=== PATIENT | female | born 1990 | race African-American/Black ===

== ENCOUNTER 2016-10-20 14:59 | Emergency (ER) | payer SELFPAY ==
[~2016-10-20] VITALS: Ht 157.5 cm; Wt 117.9 kg
[~2016-10-20 14:59] MED LIST: ACYC800T PO; HYDR12.58 PO; LIDO5JEL8 MM; VALA500T PO; VALA500T5 PO
[2016-10-20] MEDS ORDERED: ACETAMINOPHEN 325 MG TABLET. PO ONE (15:45)
--- NOTE | 2016-10-20 15:46 | PHYS DOC ---
Past Medical History Past Medical History: CHF, Hypertension, Other Additional Past Medical Histor: TETRALOGY OF FALLOT, obesity,venereal herpes Past Surgical History: Tonsillectomy, Other Additional Past Surgical Histo: PULMONARY VALVE REPLACEMENT, SHUNT PLACEMENT IN BACK, EYE SURGERY Past Surgical History 2 heart surgeries Alcohol Use: None Drug Use: None Adult General Chief Complaint Chief Complaint: SHORTNESS OF BREATH HPI HPI Patient is a 25 year old female presents to emergency department stating for the last 2-3 days she has had a cough, congestion and felt like SOA. She states she was at work when she developed SOA. She states she has taken over the counter cold and flu medication without relief. Patient states she has had chills, denies fever, nausea or vomiting. Review of Systems Review of Systems Constitutional: Denies fever C/o chills [] Eyes: Denies change in visual acuity, redness, or eye pain [] HENT: Denies nasal congestion C/o sore throat [] Respiratory: cough and shortness of breath [] Cardiovascular: No additional information not addressed in HPI [] GI: Denies abdominal pain, nausea, vomiting, bloody stools or diarrhea [] : Denies dysuria or hematuria [] Musculoskeletal: Denies back pain or joint pain [] Integument: Denies rash or skin lesions [] Neurologic: Denies headache, focal weakness or sensory changes [] Current Medications Current Medications Current Medications Medications (Trade) Dose Ordered Sig/Chely Start Time Stop Time Status Last Admin Dose Admin Acetaminophen (Tylenol) 650 mg 1X ONCE 10/20/16 15:45 10/20/16 15:48 DC Albuterol Sulfate (Ventolin Neb Soln) 2.5 mg 1X ONCE 10/20/16 16:45 10/20/16 16:46 DC Allergies Allergies Allergies Coded Allergies Type Severity Reaction Last Updated Verified aspirin Allergy Intermediate Palpitations 12/25/13 Yes Physical Exam Physical Exam Constitutional: Well developed, well nourished, no acute distress, non-toxic appearance. [] HENT: Normocephalic, atraumatic, bilateral external ears normal, oropharynx moist, no oral exudates, nose normal. Bilateral TM normal, throat with post nasal drip noted, erythema noted, no exudate. Eyes: PERRLA, EOMI, conjunctiva normal, no discharge. [] Neck: Normal range of motion, no tenderness, supple, no stridor. [] Cardiovascular:Heart rate regular rhythm, no murmur [] Lungs & Thorax: Bilateral breath sounds clear to auscultation [] Skin: Warm, dry, no erythema, no rash. [] Back: No tenderness Extremities: No tenderness, no cyanosis, no clubbing, ROM intact, no edema. [] Neurologic: Alert and oriented X 3, normal motor function, normal sensory function, no focal deficits noted. [] Psychologic: Affect normal, judgement normal, mood normal. [] Current Patient Data Vital Signs Vital Signs Date Time Temp Pulse Resp B/P Pulse Ox O2 Delivery O2 Flow Rate FiO2 10/20/16 15:52 97.6 80 28 100 Room Air 97.6 Lab Values Laboratory Tests Test 10/20/16 15:35 10/20/16 15:45 10/20/16 15:53 Influenza Type A Antigen Negative (NEGATIVE) Influenza Type B Antigen Negative (NEGATIVE) Urine Color Yellow Urine Clarity Clear Urine pH 5.5 Urine Specific [place] 1.020 Urine Protein Negativemg/dL (NEG-TRACE) Urine Glucose (UA) Negativemg/dL (NEG) Urine Ketones (Stick) Negativemg/dL (NEG) Urine Blood Trace (NEG) Urine Nitrite Negative (NEG) Urine Bilirubin Negative (NEG) Urine Urobilinogen Dipstick 0.2mg/dL (0.2 mg/dL) Urine Leukocyte Esterase Negative (NEG) Urine RBC Rare/HPF (0-2) Urine WBC 1-4/HPF (0-4) Urine Squamous Epithelial Cells Mod/LPF Urine Bacteria Few/HPF (0-FEW) Urine Mucus Slight/LPF POC Urine HCG, Qualitative Hcg negative (Negative) EKG EKG EKG completed at 1540 with SR noted HR [address] Gillis[] Radiology/Procedures Radiology/Procedures [] Course & Med Decision Making Course & Med Decision Making Pertinent Labs and Imaging studies reviewed. (See chart for details) Patients CXR was negative, influenza was negative. Strep throat was negative. Patient is upset because she has a crying child in the next room next to her. Patient is also upset as she had Tylenol ordered and it has not received the medication. Patient had a respiratory treatment ordered in which patient's refused she's also refuses to have a d-dimer obtained to rule out blood clot to the lung she has had shortness of air has had also valve replacement as well as trilogy of flow. Patient has requested leave AGAINST MEDICAL ADVICE. Patient was provided with risks and benefits. Patient is very upset cursing at staff and continuing to state that we did nothing for her. Patient was also able to talk in full sentences containing 10 words. Dragon Disclaimer Dragon Disclaimer This electronic medical record was generated, in whole or in part, using a voice recognition dictation system. Departure Departure Impression: Primary Impression: Left against medical advice Additional Impression: Dyspnea Disposition: 07 AGAINST MEDICAL ADVICE Condition: STABLE Referrals: NO PCP (PCP) Problem Qualifiers TYLOR BEAULIEU NP Oct 20, 2016 15:46
[2016-10-20 15:52] VITALS: BP 139/81
--- NOTE | 2016-10-20 15:55 | EKG ---
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
[2016-10-20 16:02] LABS: OBC FLU VALID
[2016-10-20 16:17] LABS: BILIRUBIN,URINE NEGATIVE (NEG); GLUCOSE,URINE NEGATIVE (NEG); NITRITE,URINE NEGATIVE (NEG); PH,URINE 5.5; PROTEIN,URINE NEGATIVE (NEG-TRACE); UROBILINOGEN,URINE 0.2 mg/dL (0.2 mg/dL)
--- NOTE | 2016-10-20 16:27 | RAD ---
Chest, 2 views, 10/20/2016: History: Cough, shortness of breath, previous cardiac surgery Comparison is made to a study from 02/19/2014. There has been a previous median sternotomy. Epicardial leads overlie the anterior aspect of the heart. The heart is at the upper limits of normal in size. The pulmonary vascularity is normal. No pulmonary infiltrates are seen. There is no evidence of pleural fluid. There are postsurgical rib deformities are present on the right. IMPRESSION: No acute cardiopulmonary abnormality is detected.
[2016-10-20 16:33] LABS: BACTERIA,URINE FEW /HPF (0-FEW); RBC,URINE RARE /HPF (0-2); SQUAMOUS EPITHELIAL CELL,UR MOD /LPF
[2016-10-20] MEDS ORDERED: ALBUTEROL SULFATE 2.5 MG/3 ML NEBU. NEB ONE (16:45)
[2016-10-21 08:26] LABS: NEGATIVE OBC STREP NEG; POSITIVE OBC STREP POS
== END 2016-10-20 17:03 | disposition left against medical advice (07) ==
LOC: ER 14:59
DX: R06.00 Dyspnea, unspecified (principal); R05 Cough; R09.82 Postnasal drip; R09.81 Nasal congestion; I11.0 Hypertensive heart disease with heart failure; I50.9 Heart failure, unspecified; E66.9 Obesity, unspecified; Z68.42 Body mass index [BMI] 45.0-49.9, adult; Z88.6 Allergy status to analgesic agent
CPT/HCPCS: 71020; 81001; 81025; 87070; 87804; 87880; 93005; 99285-25

== ENCOUNTER 2016-12-08 22:19 | Emergency (ER) | payer SELFPAY ==
[~2016-12-08] VITALS: Ht 157.5 cm; Wt 122.5 kg
[2016-12-08 22:35] VITALS: BP 164/95
[2016-12-08] MEDS ORDERED: ACYC200C PO (22:45)
--- NOTE | 2016-12-08 22:45 | PHYS DOC ---
Past Medical History Past Medical History: CAD Additional Past Medical Histor: TETRALOGY OF FALLOT, obesity,venereal herpes Past Surgical History: Coronary Bypass Surgery Additional Past Surgical Histo: PULMONARY VALVE REPLACEMENT, SHUNT PLACEMENT IN BACK, EYE SURGERY Alcohol Use: None Drug Use: None Adult General Chief Complaint Chief Complaint: SEXUALLY TRANSMITTED DISEASE [facility] HPI Patient is a 26 year old male presents emergency partner stating that she is having a outbreak of herpes. She states that she does not have any acyclovir at home in which she can take. She denies any vaginal discharge and denies any abdominal pain or discomfort. She states that she has just finished her menstrual cycle. She denies any fever, chills or nausea vomiting Review of Systems Review of Systems Constitutional: Denies fever or chills [] Eyes: Denies change in visual acuity, redness, or eye pain [] HENT: Denies nasal congestion or sore throat [] Respiratory: Denies cough or shortness of breath [] Cardiovascular: No additional information not addressed in HPI [] GI: Denies abdominal pain, nausea, vomiting, bloody stools or diarrhea [] : Denies dysuria or hematuria [] Musculoskeletal: Denies back pain or joint pain [] Integument: Denies rash or skin lesions. C/o lesions in vaginal area Neurologic: Denies headache, focal weakness or sensory changes [] Allergies Allergies Allergies Coded Allergies Type Severity Reaction Last Updated Verified aspirin Allergy Intermediate Palpitations 12/25/13 Yes Physical Exam Physical Exam Constitutional: Well developed, well nourished, no acute distress, non-toxic appearance. [] HENT: Normocephalic, atraumatic, bilateral external ears normal, oropharynx moist, no oral exudates, nose normal. [] Eyes: PERRLA, EOMI, conjunctiva normal, no discharge. [] Neck: Normal range of motion, no tenderness, supple, no stridor. [] Cardiovascular:Heart rate regular rhythm, no murmur [] Lungs & Thorax: Bilateral breath sounds clear to auscultation [] Skin: Warm, dry, no erythema, no rash. Patient was noted to have pustular type lesions in the vaginal area. Back: No tenderness Extremities: No tenderness, no cyanosis, no clubbing, ROM intact, no edema. [] Neurologic: Alert and oriented X 3, normal motor function, normal sensory function, no focal deficits noted. [] Psychologic: Affect normal, judgement normal, mood normal. [] EKG EKG [] Radiology/Procedures Radiology/Procedures [] Course & Med Decision Making Course & Med Decision Making Pertinent Labs and Imaging studies reviewed. (See chart for details) She was noted to have some pressure type lesions in the vaginal area. She'll be placed on acyclovir with recommendations to avoid any sexual intercourse during the outbreak. Patient will be discharged home in stable condition signs symptoms to return back to emergency department been provided. Patient agrees with discharge instructions treatment regimens and follow-up recommendations. [] Dragon Disclaimer Dragon Disclaimer This electronic medical record was generated, in whole or in part, using a voice recognition dictation system. Departure Departure Impression: Primary Impression: Genital herpes Disposition: HOME, SELF-CARE Condition: STABLE Referrals: NO PCP (PCP) Patient Instructions: Genital Herpes Additional Instructions: Activity as tolerated. Medications as prescribed. Avoid any sexual intercourse while you're having the outbreak. Follow-up with your primary care physician for further evaluation. Return to emergency prior signs symptoms of become worse. Scripts Acyclovir 200 Mg Capsule1 Cap PO 5XDAY #50 CAP Prov:TYLOR BEAULIUE [employer]ING P[employer]HER 12/08/16 TYLOR BEAULIEU [employer]ING PUSHER Dec 08, 2016 22:45
== END 2016-12-08 22:49 | disposition home or self-care (01) ==
LOC: ER 22:19
DX: A60.00 Herpesviral infection of urogenital system, unspecified (principal); I25.10 Atherosclerotic heart disease of native coronary artery without angina pectoris; E66.9 Obesity, unspecified; Z95.2 Presence of prosthetic heart valve; Z95.1 Presence of aortocoronary bypass graft; Z88.6 Allergy status to analgesic agent; Z68.42 Body mass index [BMI] 45.0-49.9, adult
CPT/HCPCS: 81025; 99283

== ENCOUNTER 2017-04-09 23:08 | Emergency (ER) | payer SELFPAY ==
[~2017-04-09] VITALS: Ht 157.5 cm; Wt 104.3 kg
[~2017-04-09 23:08] MED LIST changes: +ACYC200C PO
[2017-04-09 23:36] LABS: BILIRUBIN,URINE NEGATIVE (NEG); GLUCOSE,URINE NEGATIVE (NEG); NITRITE,URINE NEGATIVE (NEG); PH,URINE 5.5; PROTEIN,URINE NEGATIVE (NEG-TRACE)
--- NOTE | 2017-04-09 23:42 | PHYS DOC ---
Past Medical History Past Medical History: CAD Additional Past Medical Histor: TETRALOGY OF FALLOT, obesity,venereal herpes Past Surgical History: Coronary Bypass Surgery Additional Past Surgical Histo: PULMONARY VALVE REPLACEMENT, SHUNT PLACEMENT IN BACK, EYE SURGERY Alcohol Use: Occasionally Drug Use: None Adult General Chief Complaint Chief Complaint: PAIN ON URINATION HPI HPI Patient is a 26 year old female who presents with complaint of dysuria. The patient states that she has been having symptoms over the past 3 days which have been worsening during that time. Patient states that she has had increased urinary frequency and has been producing small amounts of urine with each void. Patient states that she gets mild discomfort in her pelvis but states that this only happens during urination. Patient states that her last menstrual period was "in the middle of February." The patient states that she is 4-5 days late on her menstrual cycle. Patient states that it is possible she could be . Patient has not taken any medications to help with her symptoms. Patient has not had any associated fever, nausea, or vomiting. Review of Systems Review of Systems Constitutional: Denies fever or chills [] Eyes: Denies change in visual acuity, redness, or eye pain [] HENT: Denies nasal congestion or sore throat [] Respiratory: Denies cough or shortness of breath [] Cardiovascular: Denies chest pain or edema [] GI: Lower abdominal pain with voiding, denies nausea, vomiting, bloody stools or diarrhea [] : Dysuria, urinary frequency, denies vaginal bleeding [] Musculoskeletal: Denies back pain or joint pain [] Integument: Denies rash or skin lesions [] Neurologic: Denies headache, focal weakness or sensory changes [] Current Medications Current Medications Current Medications Medications (Trade) Dose Ordered Sig/Chely Start Time Stop Time Status Last Admin Dose Admin Azithromycin (Zithromax) 1,000 mg 1X ONCE 04/10/17 00:00 04/10/17 00:49 DC 04/10/17 00:35 1,000 MG Ceftriaxone Sodium (Rocephin Im) 250 mg 1X ONCE 04/10/17 00:00 04/10/17 00:49 DC 04/10/17 00:35 250 MG Allergies Allergies Allergies Coded Allergies Type Severity Reaction Last Updated Verified aspirin Allergy Intermediate Palpitations 12/25/13 Yes Physical Exam Physical Exam Constitutional: Alert, obese, afebrile, no acute distress. [] HENT: Normocephalic, atraumatic, bilateral external ears normal, oropharynx moist, no oral exudates, nose normal. [] Eyes: PERRLA, EOMI, conjunctiva normal, no discharge. [] Neck: Normal range of motion, no tenderness, supple, no stridor. [] Cardiovascular:Heart rate regular rhythm, no murmur [] Lungs & Thorax: Bilateral breath sounds clear to auscultation [] Abdomen: Bowel sounds normal, soft, no tenderness, no masses, no pulsatile masses. : Normal external exam, no vesicular lesions on labia, no blood in vaginal canal, cervix is closed [] Skin: Warm, dry, no erythema, no rash. [] Back: No tenderness, no CVA tenderness. [] Extremities: No tenderness, no cyanosis, no clubbing, ROM intact, no edema. [] Neurologic: Alert and oriented X 3, normal motor function, normal sensory function, no focal deficits noted. [] Current Patient Data Vital Signs Vital Signs Date Time Temp Pulse Resp B/P (MAP) Pulse Ox O2 Delivery O2 Flow Rate FiO2 04/09/17 23:34 98.1 82 18 116/85 (95) 100 Room Air 98.1 Lab Values Laboratory Tests Test 04/09/17 03:15 04/09/17 22:36 Urine Collection Type Unknown Urine Color Yellow Urine Clarity Cloudy Urine pH 5.5 Urine Specific [place] >=1.030 Urine Protein Negative mg/dL (NEG-TRACE) Urine Glucose (UA) Negative mg/dL (NEG) Urine Ketones (Stick) Trace mg/dL (NEG) Urine Blood Negative (NEG) Urine Nitrite Negative (NEG) Urine Bilirubin Negative (NEG) Urine Urobilinogen Dipstick 1.0 mg/dL (0.2 mg/dL) Urine Leukocyte Esterase Moderate (NEG) Urine RBC Occ /HPF (0-2) Urine WBC 11-20 /HPF (0-4) Urine Squamous Epithelial Cells Many /LPF Urine Bacteria Moderate /HPF (0-FEW) Urine Mucus Marked /LPF Urine Trichomonas Present POC Urine HCG, Qualitative Hcg positive (Negative) Microbiology 04/10/17 Wet Prep - Final, Complete EKG EKG Not performed [] Radiology/Procedures Radiology/Procedures Not performed [] Course & Med Decision Making Course & Med Decision Making Pertinent Labs and Imaging studies reviewed. (See chart for details) Patient's urine hCG was found to be positive. I spoke with the patient regarding this finding. She stated her last menstrual period was approximately 4 weeks ago and stated that she was 4 days late on her current menstrual period. Given that this was a brand-new finding of , I offered additional blood work including a confirmatory hCG test. The patient stated however that she did not want to have any blood drawn at this time and declined all blood testing. She stated that she would follow-up with an CATALYTIC CONVERTER OPERATOR to have this done. The patient's urinalysis showed evidence of urinary tract infection and also showed evidence of trichomonas. The patient's wet prep also shows evidence of trichomonas. Spoke with the patient regarding this finding. The patient is in early first trimester . Given the question of safety with use of 2 g of oral metronidazole, I spoke with the patient regarding risks and benefits of treatment. I explained the possible risk of complications to with use of oral metronidazole. The patient stated that she did not want treatment at this time but stated that she would follow-up with her CATALYTIC CONVERTER OPERATOR for further consultation. The patient was given IM Rocephin and azithromycin to treat for possible coinfection with gonorrhea and chlamydia. The patient will be discharged with prescription for Keflex for continued treatment of urinary tract infection. The patient stated that she would follow-up with the CATALYTIC CONVERTER OPERATOR clinic at [facility]. Recommended scheduled appointment in 1 week. Advised return emergency department for any worsening symptoms. Patient voiced understanding and in agreement with treatment plan. Dragon Disclaimer Dragon Disclaimer This electronic medical record was generated, in whole or in part, using a voice recognition dictation system. Departure Departure Impression: Primary Impression: UTI (urinary tract infection) Additional Impression: Positive test Disposition: HOME, SELF-CARE Condition: IMPROVED Referrals: NO PCP (PCP) Patient Instructions: Tests, Urinary Tract Infection Additional Instructions: You chose to not have blood testing completed at your emergency department. It is strongly recommended that you have this done at your visit. Follow- up with CATALYTIC CONVERTER OPERATOR at [facility] in 1 week. Return to the emergency department for any worsening symptoms. Scripts Cephalexin (KEFLEX) 500 Mg Capsule 1 CAP PO BID, #14 CAP Prov: STACIA TOBIN MD 04/10/17 Problem Qualifiers Primary Impression: UTI (urinary tract infection) Urinary tract infection type: acute cystitis Hematuria presence: without hematuria Qualified Codes: N30.00 - Acute cystitis without hematuria STACIA TOBIN MD Apr 09, 2017 23:42
[2017-04-09 23:54] LABS: RBC,URINE OCC /HPF (0-2)
[2017-04-09 23:55] LABS: BACTERIA,URINE MODERATE /HPF (0-FEW); SQUAMOUS EPITHELIAL CELL,UR MANY /LPF; TRICHOMONAS,URINE PRESENT
[2017-04-10] MEDS ORDERED: cefTRIAXone IM 250 MG VIAL IM ONE
[2017-04-10] MEDS ORDERED: AZITHROMYCIN 250 MG TABLET. PO ONE
[2017-04-10] MEDS ORDERED: CEPH-264 PO (01:01)
[2017-04-10 01:14] VITALS: BP 138/67
== END 2017-04-10 01:28 | disposition home or self-care (01) ==
LOC: ER 23:08
DX: O23.11 Infections of bladder in pregnancy, first trimester (principal); I25.10 Atherosclerotic heart disease of native coronary artery without angina pectoris; E66.9 Obesity, unspecified; Z3A.00 Weeks of gestation of pregnancy not specified; Z88.6 Allergy status to analgesic agent; Z68.41 Body mass index [BMI] 40.0-44.9, adult; Z95.2 Presence of prosthetic heart valve; Z95.1 Presence of aortocoronary bypass graft
CPT/HCPCS: 81001; 81025; 87086; 87491; 87591; 96372; 99284; J0696; Q0111; Q0144

== ENCOUNTER 2017-04-15 07:33 | Emergency (ER) | payer SELFPAY ==
[~2017-04-15] VITALS: Ht 157.5 cm; Wt 125.6 kg
[~2017-04-15 07:33] MED LIST changes: +CEPH-264 PO
[2017-04-15] MEDS ORDERED: ACETAMINOPHEN 325 MG TABLET. PO ONE (08:00)
--- NOTE | 2017-04-15 08:05 | PHYS DOC ---
Past Medical History Past Medical History: CAD Additional Past Medical Histor: TETRALOGY OF FALLOT, obesity,venereal herpes Past Surgical History: Coronary Bypass Surgery Additional Past Surgical Histo: PULMONARY VALVE REPLACEMENT, SHUNT PLACEMENT IN BACK, EYE SURGERY Alcohol Use: Occasionally Drug Use: None Adult General Chief Complaint Chief Complaint: ABDOMINAL PAIN IN HPI HPI Patient is a 26 year old female who presents with dysuria. The patient is , LMP about 4-5 weeks ago. She was seen here 04/09 diagnosed with UTI & taking keflex. She states she has continued dysuria & this morning had severe lower abdominal cramping pain which has resolved at this time. Denies fevers/chills, nausea, vomiting, flank pain, hematuria, vaginal bleeding/discharge. She has an appointment next week in the [facility] as she has history of open heart surgery for repair of Tetralogy of Fallot. Review of Systems Review of Systems Constitutional: Denies fever or chills HENT: Denies nasal congestion or sore throat Respiratory: Denies cough or shortness of breath Cardiovascular: Denies chest pain GI: Reports abdominal pain, denies nausea, vomiting, or diarrhea : Reports dysuria Musculoskeletal: Denies back pain or joint pain Integument: Denies rash Neurologic: Denies headache Current Medications Current Medications Current Medications Medications (Trade) Dose Ordered Sig/Chely Start Time Stop Time Status Last Admin Dose Admin Acetaminophen (Tylenol) 650 mg 1X ONCE 04/15/17 08:00 04/15/17 08:01 DC 04/15/17 08:40 650 MG Allergies Allergies Allergies Coded Allergies Type Severity Reaction Last Updated Verified aspirin Allergy Intermediate Palpitations 04/15/17 Yes Physical Exam Physical Exam Constitutional: obese, no acute distress, non-toxic appearance. HENT: Normocephalic, atraumatic, bilateral external ears normal, oropharynx moist, nose normal. Eyes: conjunctiva normal, no discharge. Neck: supple, no stridor. Cardiovascular: RRR, 4/6 systolic murmur, no edema. Lungs & Thorax: LCTAB, no wheezing, no respiratory distress. Abdomen: soft, no focal abdominal tenderness with palpation, no rebound/guarding , no masses or pulsatile masses, nondistended. Skin: Warm, dry, no erythema, no rash. Back: No CVA tenderness. Extremities: No tenderness, no edema. Neurologic: Alert and oriented X 3, no focal deficits noted. Psychologic: Affect normal, judgement normal, mood normal. Current Patient Data Vital Signs Vital Signs Date Time Temp Pulse Resp B/P (MAP) Pulse Ox O2 Delivery O2 Flow Rate FiO2 04/15/17 07:48 98.5 91 20 149/81 (103) 99 Room Air 98.5 Lab Values Laboratory Tests Test 04/15/17 06:55 04/15/17 07:48 04/15/17 08:15 POC Urine HCG, Qualitative Hcg positive (Negative) Urine Collection Type Unknown Urine Color Yellow Urine Clarity Clear Urine pH 7.0 Urine Specific [place] 1.020 Urine Protein Negative mg/dL (NEG-TRACE) Urine Glucose (UA) Negative mg/dL (NEG) Urine Ketones (Stick) Negative mg/dL (NEG) Urine Blood Negative (NEG) Urine Nitrite Negative (NEG) Urine Bilirubin Negative (NEG) Urine Urobilinogen Dipstick 0.2 mg/dL (0.2 mg/dL) Urine Leukocyte Esterase Moderate (NEG) Urine RBC 3-5 /HPF (0-2) Urine WBC 11-20 /HPF (0-4) Urine Squamous Epithelial Cells Many /LPF Urine Bacteria Few /HPF (0-FEW) Urine Mucus Marked /LPF Urine Trichomonas Present White Blood Count 6.9 x10^3/uL (4.0-11.0) Red Blood Count 4.57 x10^6/uL (3.50-5.40) Hemoglobin 12.6 g/dL (12.0-15.5) Hematocrit 37.8 % (36.0-47.0) Mean Corpuscular Volume 83 fL (79-100) Mean Corpuscular Hemoglobin 28 pg (25-35) Mean Corpuscular Hemoglobin Concent 33 g/dL (31-37) Red Cell Distribution Width 15.0 % (11.5-14.5) H Platelet Count 261 x10^3/uL (140-400) Neutrophils (%) (Auto) 63 % (31-73) Lymphocytes (%) (Auto) 27 % (24-48) Monocytes (%) (Auto) 7 % (0-9) Eosinophils (%) (Auto) 2 % (0-3) Basophils (%) (Auto) 1 % (0-3) Neutrophils # (Auto) 4.4 x10^3uL (1.8-7.7) Lymphocytes # (Auto) 1.8 x10^3/uL (1.0-4.8) Monocytes # (Auto) 0.5 x10^3/uL (0.0-1.1) Eosinophils # (Auto) 0.1 x10^3/uL (0.0-0.7) Basophils # (Auto) 0.1 x10^3/uL (0.0-0.2) Maternal Serum HCG Beta Subunit 5535 mIU/mL (0-5) H Sodium Level 140 mmol/L (136-145) Potassium Level 3.8 mmol/L (3.5-5.1) Chloride Level 105 mmol/L (98-107) Carbon Dioxide Level 26 mmol/L (21-32) Anion Gap 9 (6-14) Blood Urea Nitrogen 8 mg/dL (7-20) Creatinine 0.7 mg/dL (0.6-1.0) Estimated GFR (Cockcroft-Gault) 121.5 BUN/Creatinine Ratio 11 (6-20) Glucose Level 120 mg/dL (70-99) H Calcium Level 9.5 mg/dL (8.5-10.1) Total Bilirubin 0.3 mg/dL (0.2-1.0) Aspartate Amino Transferase (AST) 14 U/L (15-37) L Alanine Aminotransferase (ALT) 27 U/L (14-59) Alkaline Phosphatase 50 U/L (46-116) Total Protein 7.2 g/dL (6.4-8.2) Albumin 3.9 g/dL (3.4-5.0) Albumin/Globulin Ratio 1.2 (1.0-1.7) Laboratory Tests 04/15/17 08:15 Laboratory Tests 04/15/17 08:15 EKG EKG [] Radiology/Procedures Radiology/Procedures PROCEDURE: OB <14 WKS W/TV Examination: Obstetric ultrasound less than 14 weeks History: History of cramping in early . Comparison: None available Findings: The uterus measures 10.1 x 5.1 x 6.2 cm. There is a 3.3 x 2.9 cm echogenicity identified in the uterus causing some impingement of the endometrium probably a fibroid. There is an intrauterine gestational sac identified. The gestational sac is low lying in the uterus. And echogenicity, questionable tiny pole identified in the gestational sac is too small to characterize. Gestational sac measures 0.65 cm corresponding to 5 weeks and 3 days. cardiac motion is not identified. The right ovary measures 3.1 x 2.8 x 1.8 cm The left ovary measures 2.3 x 2.9 x 0.9 cm. Gestational age corresponds to 5 weeks and 3 days with estimated date of delivery 12/13/2017. Impression: 1. Intrauterine gestational sac identified which appears low-lying in the uterus. There is a tiny echogenicity within the gestational sac probably pole. Obvious cardiac motion is not identified could be due to very early . Close interval follow-up examination and serial quantitative beta-hCG levels is recommended. 2. There is a 3.3 cm echogenicity identified in the uterus causing some impingement on the endometrium probably a fibroid. DICTATED and SIGNED BY: JASWANT EM MD DATE: 04/15/17 0855[] Course & Med Decision Making Course & Med Decision Making Pertinent Labs and Imaging studies reviewed. (See chart for details) The patient presents with abdominal pain in . Vitals stable. She has no pain on exam. Recent visit with pelvic exam at that time. Obtained labs, UA , US. Gestational sac seen without heart tones, likely early but she is unsure of dates. Still has UTI though urine contaminated again. Still positive for trichomonas. Last time she elected not to be treated. Will give macrobid for UTI, stop keflex, now she agrees to take flagyl for trichomonas, already empirically treated with rocephin & azithromycin & was negative for gonorrhea & chlamydia. Recommend rest, hydration, tylenol for pain. Follow up in OB clinic within 2-3 days. Come back for high fever, severe pain, uncontrolled vomiting, heavy bleeding requiring greater than 1 pad per hour, any otherwise worsening condition. Discharged home in stable condition. [] Dragon Disclaimer Dragon Disclaimer This electronic medical record was generated, in whole or in part, using a voice recognition dictation system. Departure Departure Impression: Primary Impression: UTI (urinary tract infection) Additional Impressions: Trichomoniasis Abdominal pain affecting Disposition: 01 HOME, SELF-CARE Condition: STABLE Referrals: NO PCP (PCP) Patient Instructions: - First Trimester, [id number], Trichomoniasis , Urinary Tract Infection, [id number] Additional Instructions: You were seen in the emergency department today for urinary tract infection. Please take the new antibiotic instead of the 1 you were taking previously. Also take Flagyl to treat Trichomonas. This is a sexually transmitted infection. Any sexual partner should also received treatment. No intercourse for 2 weeks. Drink fluids to stay hydrated. Take Tylenol for pain. Follow-up with your OB doctor as soon as possible. Return to the emergency department for severe pain, uncontrolled vomiting, heavy vaginal bleeding requiring more than 1 pad per hour, any otherwise worsening condition. Scripts Nitrofurantoin Monohyd/M-Cryst (MACROBID 100 MG CAPSULE) 100 Mg Capsule 1 CAP PO BID, #14 CAP Prov: TARA HERNANDEZ MD 04/15/17 Metronidazole (FLAGYL) 500 Mg Tablet 1 TAB PO BID, #14 TAB Prov: TARA HERNANDEZ MD 04/15/17 Problem Qualifiers TARA HERNANDEZ MD Apr 15, 2017 08:04
[2017-04-15 08:25] LABS: BASO # 0.1 x10^3/uL (0.0-0.2); BASO % 1 % (0-3); EOS % 2 % (0-3); HEMATOCRIT 37.8 % (36.0-47.0); HEMOGLOBIN 12.6 g/dL (12.0-15.5); LYMPH # 1.8 x10^3/uL (1.0-4.8); LYMPH % 27 % (24-48); MEAN CORPUSCULAR HEMOGLOBIN 28 pg (25-35); MEAN CORPUSCULAR HGB CONC 33 g/dL (31-37); MEAN CORPUSCULAR VOLUME 83 fL (79-100); MONO % 7 % (0-9); NEUT % 63 % (31-73); PLATELET COUNT 261 x10^3/uL (140-400); RED BLOOD COUNT 4.57 x10^6/uL (3.50-5.40); WHITE BLOOD COUNT 6.9 x10^3/uL (4.0-11.0)
[2017-04-15 08:27] LABS: BILIRUBIN,URINE NEGATIVE (NEG); GLUCOSE,URINE NEGATIVE (NEG); NITRITE,URINE NEGATIVE (NEG); PROTEIN,URINE NEGATIVE (NEG-TRACE); UROBILINOGEN,URINE 0.2 mg/dL (0.2 mg/dL)
[2017-04-15 08:32] LABS: SQUAMOUS EPITHELIAL CELL,UR MANY /LPF
[2017-04-15 08:33] LABS: BACTERIA,URINE FEW /HPF (0-FEW)
[2017-04-15 08:37] LABS: TRICHOMONAS,URINE PRESENT
[2017-04-15 08:37] LABS: CALCIUM 9.5 mg/dL (8.5-10.1); CREATININE 0.7 mg/dL (0.6-1.0); GFR 121.5; POTASSIUM 3.8 mmol/L (3.5-5.1)
[2017-04-15 08:43] LABS: ALBUMIN 3.9 g/dL (3.4-5.0); ALBUMIN/GLOBULIN RATIO 1.2 (1.0-1.7); TOTAL BILIRUBIN 0.3 mg/dL (0.2-1.0); TOTAL PROTEIN 7.2 g/dL (6.4-8.2)
--- NOTE | 2017-04-15 09:02 | RAD ---
Examination: Obstetric ultrasound less than 14 weeks History: History of cramping in early . Comparison: None available Findings: The uterus measures 10.1 x 5.1 x 6.2 cm. There is a 3.3 x 2.9 cm echogenicity identified in the uterus causing some impingement of the endometrium probably a fibroid. There is an intrauterine gestational sac identified. The gestational sac is low lying in the uterus. And echogenicity, questionable tiny pole identified in the gestational sac is too small to characterize. Gestational sac measures 0.65 cm corresponding to 5 weeks and 3 days. cardiac motion is not identified. The right ovary measures 3.1 x 2.8 x 1.8 cm The left ovary measures 2.3 x 2.9 x 0.9 cm. Gestational age corresponds to 5 weeks and 3 days with estimated date of delivery 12/13/2017. Impression: 1. Intrauterine gestational sac identified which appears low-lying in the uterus. There is a tiny echogenicity within the gestational sac probably pole. Obvious cardiac motion is not identified could be due to very early . Close interval follow-up examination and serial quantitative beta-hCG levels is recommended. 2. There is a 3.3 cm echogenicity identified in the uterus causing some impingement on the endometrium probably a fibroid.
[2017-04-15] MEDS ORDERED: METR500T PO (09:19)
[2017-04-15] MEDS ORDERED: NITR100C62 PO (09:19)
[2017-04-15 09:50] VITALS: BP 134/73
== END 2017-04-15 10:00 | disposition home or self-care (01) ==
LOC: ER 07:33
DX: O23.41 Unspecified infection of urinary tract in pregnancy, first trimester (principal); A59.9 Trichomoniasis, unspecified; O99.411 Diseases of the circulatory system complicating pregnancy, first trimester; I25.10 Atherosclerotic heart disease of native coronary artery without angina pectoris; O99.211 Obesity complicating pregnancy, first trimester; E66.9 Obesity, unspecified; Z68.43 Body mass index [BMI] 50.0-59.9, adult; Z95.2 Presence of prosthetic heart valve; Z88.6 Allergy status to analgesic agent; Z3A.01 Less than 8 weeks gestation of pregnancy
CPT/HCPCS: 36415; 76801; 76817; 80053; 81001; 81025; 84702; 85025; 87086; 99285-25

== ENCOUNTER 2017-05-24 21:39 | Emergency (ER) | payer OTHER ==
[~2017-05-24] VITALS: Ht 162.6 cm; Wt 127.5 kg
[~2017-05-24 21:39] MED LIST changes: +METR500T PO; +NITR100C62 PO
[2017-05-24 21:52] VITALS: BP 126/76
[2017-05-24 22:18] LABS: BILIRUBIN,URINE NEGATIVE (NEG); GLUCOSE,URINE NEGATIVE (NEG); NITRITE,URINE NEGATIVE (NEG); PH,URINE 5.5; PROTEIN,URINE NEGATIVE (NEG-TRACE); UROBILINOGEN,URINE 0.2 mg/dL (0.2 mg/dL)
[2017-05-24 22:25] LABS: BACTERIA,URINE 0 /HPF (0-FEW); RBC,URINE OCC /HPF (0-2); SQUAMOUS EPITHELIAL CELL,UR MANY /LPF
--- NOTE | 2017-05-24 22:26 | ED.ADGEN ---
Past Medical History Past Medical History: CAD Additional Past Medical Histor: TETRALOGY OF FALLOT, obesity,venereal herpes Past Surgical History: Coronary Bypass Surgery Additional Past Surgical Histo: PULMONARY VALVE REPLACEMENT, SHUNT PLACEMENT IN BACK, EYE SURGERY Alcohol Use: Occasionally Drug Use: None Adult General Chief Complaint Chief Complaint: ABDOMINAL PAIN IN HPI HPI Patient is a 26 year old woman, history of Tetralogy of Fallot status post open -heart surgeries, genital herpes, status post treatment for Trichomonas, UTI several weeks ago, who is at approximately 10 weeks following with the high risk clinic at , who presents to the emergency department with complaints of abdominal cramping. Patient states that she was last seen at the high risk clinic on the 26, heart tones are obtained at that time, she was told "things were good" area patient states that she discussed the pain that she is experiencing currently with them, and was told that was likely due to "normal stretching". Patient states however that today the pain was intense, located in her lower abdomen on both sides, and radiating up her umbilicus to the xiphoid process. She denies any nausea or vomiting, any injuries, any back or flank pain, urinary complaints, any injuries, any recent sexual activity or insertions of the vagina. She states that she has noted some increased vaginal discharge for the past several days and there is "an odor". She states that currently she is experiencing only mild symptoms, states that the symptoms are "pretty much always there". Denies any swelling extremities, any rashes, any sick contacts or exposures, states that she was seen in urgent care yesterday for her asthma, was given a breathing treatment and an albuterol inhaler, she states that her symptoms are often triggered with seasonal changes such as are currently occurring. She denies any chest pain or shortness of breath currently. Denies any constipation since her last bowel was today. Review of Systems Review of Systems Constitutional: Denies fever or chills. [] Eyes: Denies change in visual acuity. [] HENT: Denies nasal congestion or sore throat. [] Respiratory: Denies cough or shortness of breath. [] Cardiovascular: Denies chest pain or edema. [] GI: Denies nausea, vomiting, bloody stools or diarrhea. Abdominal cramping both the lower and upper abdomen. : Denies dysuria. [] Musculoskeletal: Denies back pain or joint pain. [] Integument: Denies rash. [] Neurologic: Denies headache, focal weakness or sensory changes. [] Endocrine: Denies polyuria or polydipsia. [] Lymphatic: Denies swollen glands. [] Psychiatric: Denies depression or anxiety. [] Current Medications Current Medications Current Medications Medications (Trade) Dose Ordered Sig/Chely Start Time Stop Time Status Last Admin Dose Admin Metronidazole (Flagyl) 500 mg 1X ONCE 05/25/17 00:00 05/25/17 00:01 DC 05/25/17 00:11 500 MG Allergies Allergies Allergies Coded Allergies Type Severity Reaction Last Updated Verified aspirin Allergy Intermediate Palpitations 04/15/17 Yes Physical Exam Physical Exam Constitutional: Well developed, well nourished, no acute distress, non-toxic appearance. [] HENT: Normocephalic, atraumatic, bilateral external ears normal, oropharynx moist, no oral exudates, nose normal. [] Eyes: PERRLA, EOMI, conjunctiva normal, no discharge. [] Neck: Normal range of motion, no tenderness, supple, no stridor. [] Cardiovascular:Heart rate regular rhythm, no murmur, S1, S2, no rubs or gallops. [] Lungs & Thorax: Bilateral breath sounds clear to auscultation, no wheezing, rhonchi, rales. No chest or crepitus or tenderness. [] Abdomen: Bowel sounds normal, obese, soft, no tenderness, no rebound, rigidity, no guarding, no masses, no pulsatile masses. [] Skin: Warm, dry, no erythema, no rash. [] Back: No tenderness, no CVA tenderness. [] Extremities: No tenderness, no cyanosis, no clubbing, ROM intact, no edema. Negative Homans sign. [] Neurologic: Alert and oriented X 3, normal motor function, normal sensory function, no focal deficits noted. [] Psychologic: Affect normal, judgement normal, mood normal. [] Pelvic examination: Normal-appearing external examination, no lesions or injuries identified. Patient with a closed os, nontender, no CMT, no adnexal masses or tenderness identified, no tenderness to palpation on examination. Speculum and examination performed without issue, assessment taken without discomfort. Moderate amount of white discharge noted. Cervix normal in appearance, no friability or other abnormalities identified. Current Patient Data Vital Signs Vital Signs Date Time Temp Pulse Resp B/P (MAP) Pulse Ox O2 Delivery O2 Flow Rate FiO2 05/24/17 21:52 98.6 80 16 126/76 (93) 100 Room Air 98.6 Lab Values Laboratory Tests Test 05/24/17 21:58 Urine Collection Type Unknown Urine Color Yellow Urine Clarity Clear Urine pH 5.5 Urine Specific [place] >=1.030 Urine Protein Negative mg/dL (NEG-TRACE) Urine Glucose (UA) Negative mg/dL (NEG) Urine Ketones (Stick) Negative mg/dL (NEG) Urine Blood Negative (NEG) Urine Nitrite Negative (NEG) Urine Bilirubin Negative (NEG) Urine Urobilinogen Dipstick 0.2 mg/dL (0.2 mg/dL) Urine Leukocyte Esterase Negative (NEG) Urine RBC Occ /HPF (0-2) Urine WBC 1-4 /HPF (0-4) Urine Squamous Epithelial Cells Many /LPF Urine Bacteria 0 /HPF (0-FEW) Urine Mucus Mod /LPF Microbiology 05/24/17 Wet Prep - Final, Complete EKG EKG Not indicated.[] Radiology/Procedures Radiology/Procedures Not indicated.[] Course & Med Decision Making Course & Med Decision Making Pertinent Labs and Imaging studies reviewed. (See chart for details) Patient resting comfortably in the emergency department, states that her pain is significant feeling improved at this time. Pelvic examination performed, reveals closed os, with a moderate amount of white discharge. Wet prep is positive for bacterial vaginosis. Urinalysis unremarkable. I did discuss findings with patient, we also discussed utility of obtaining additional ultrasound in the ED at this time, patient will follow-up with her high risk clinic for additional evaluation, as she is resting currently at this time, closed os, and has a confirmed IUP on her evaluation by her [employer] provider, without any concerning symptoms of bleeding at this time. Patient states that she is anxious to be discharged home, first dose of metronidazole was given the ED, along with precautions, medication instructions, and return instructions. Patient to stay well-hydrated, to plenty of rest, to continue. No vitamins, to follow-up with her ENSEMBLE MEMBER for test of cure, to return to the ED if any new or concerning symptoms develop. Dragon Disclaimer Dragon Disclaimer This electronic medical record was generated, in whole or in part, using a voice recognition dictation system. Departure Impression: Primary Impression: Bacterial vaginosis Additional Impression: Abdominal pain during Disposition: HOME, SELF-CARE Condition: IMPROVED Scripts Metronidazole (METRONIDAZOLE) 500 Mg Tablet 1 TAB PO BID, #14 TAB Prov: RICH KWOK DO 05/25/17 Problem Qualifiers RICH KWOK DO May 24, 2017 22:26
[2017-05-25] MEDS ORDERED: metroNIDAZOLE 500 MG TABLET PO ONE
[2017-05-25] MEDS ORDERED: METR500T8 PO (00:25)
== END 2017-05-25 00:28 | disposition home or self-care (01) ==
LOC: ER 21:39
DX: O23.41 Unspecified infection of urinary tract in pregnancy, first trimester (principal); O23.591 Infection of other part of genital tract in pregnancy, first trimester; N76.0 Acute vaginitis; B96.89 Other specified bacterial agents as the cause of diseases classified elsewhere; I25.10 Atherosclerotic heart disease of native coronary artery without angina pectoris; Z3A.10 10 weeks gestation of pregnancy; Z88.6 Allergy status to analgesic agent
CPT/HCPCS: 81001; 87491; 87591; 99284; Q0111

== ENCOUNTER 2017-07-24 14:58 | Emergency (ER) | payer OTHER ==
[~2017-07-24] VITALS: Ht 162.6 cm; Wt 125.2 kg
[~2017-07-24 14:58] MED LIST changes: +METR500T8 PO
[2017-07-24 16:12] LABS: BILIRUBIN,URINE NEGATIVE (NEG); GLUCOSE,URINE NEGATIVE (NEG); NITRITE,URINE NEGATIVE (NEG); PROTEIN,URINE NEGATIVE (NEG-TRACE); UROBILINOGEN,URINE 0.2 mg/dL (0.2 mg/dL)
[2017-07-24 16:26] LABS: BACTERIA,URINE MODERATE /HPF (0-FEW); RBC,URINE 0 /HPF (0-2); SQUAMOUS EPITHELIAL CELL,UR MANY /LPF
--- NOTE | 2017-07-24 16:31 | PHYS DOC ---
Past Medical History Past Medical History: CAD Additional Past Medical Histor: TETRALOGY OF FALLOT, obesity,venereal herpes Past Surgical History: Coronary Bypass Surgery Additional Past Surgical Histo: PULMONARY VALVE REPLACEMENT, SHUNT PLACEMENT IN BACK, EYE SURGERY Alcohol Use: Occasionally Drug Use: None Adult General Chief Complaint Chief Complaint: ABDOMINAL PAIN IN HPI HPI Patient is a 26 year old female who presents with one-day history of suprapubic discomfort described as cramping mild in severity no radiation of the pain is 19 weeks ; prior history of UTI in the beginning of her ; seen by the high risk clinic at due to remote history of tetralogy of fallot and pulmonary valve replacement as a child. Denies chest pain shortness of breath headache or blurry vision or severe abdominal pain. Denies any leakage of fluid, vaginal bleeding or contractions. Denies low back pain or flank pain or fever. Patient reports some nausea but no vomiting or diarrhea. Review of Systems Review of Systems Constitutional: Denies fever or chills [] Eyes: Denies change in visual acuity, redness, or eye pain [] HENT: Denies nasal congestion or sore throat [] Respiratory: Denies cough or shortness of breath [] Cardiovascular: No additional information not addressed in HPI [] GI: Denies abdominal pain, nausea, vomiting, bloody stools or diarrhea [] : Denies dysuria or hematuria [] Musculoskeletal: Denies back pain or joint pain [] Integument: Denies rash or skin lesions [] Neurologic: Denies headache, focal weakness or sensory changes [] Endocrine: Denies polyuria or polydipsia [] All other systems were reviewed and found to be within normal limits, except as documented in this note. Allergies Allergies Allergies Coded Allergies Type Severity Reaction Last Updated Verified aspirin Allergy Intermediate Palpitations 04/15/17 Yes Physical Exam Physical Exam Constitutional: Well developed, well nourished, no acute distress, non-toxic appearance. [] HENT: Normocephalic, atraumatic, bilateral external ears normal, oropharynx moist, no oral exudates, nose normal. [] Eyes: PERRLA, EOMI, conjunctiva normal, no discharge. [] Neck: Normal range of motion, no tenderness, supple, no stridor. [] Cardiovascular:Heart rate regular rhythm, no murmur [] Lungs & Thorax: Bilateral breath sounds clear to auscultation [] Abdomen: Bowel sounds normal, soft, no tenderness, no masses, no pulsatile masses. 19 week uterus; heart tones per the ultrasound were within normal limits [] Skin: Warm, dry, no erythema, no rash. [] Back: No tenderness, no CVA tenderness. [] Extremities: No tenderness, no cyanosis, no clubbing, ROM intact, no edema. [] Neurologic: Alert and oriented X 3, normal motor function, normal sensory function, no focal deficits noted. [] Psychologic: Affect normal, judgement normal, mood normal. [] Current Patient Data Vital Signs Vital Signs Date Time Temp Pulse Resp B/P (MAP) Pulse Ox O2 Delivery O2 Flow Rate FiO2 07/24/17 17:20 98 16 130/81 (97) 97 Room Air 07/24/17 15:35 98.4 98.4 Lab Values Laboratory Tests Test 07/24/17 15:36 07/24/17 15:42 07/24/17 16:10 Urine Collection Type Unknown Urine Color [place] Urine Clarity Clear Urine pH 6.0 Urine Specific [place] >=1.030 Urine Protein Negative mg/dL (NEG-TRACE) Urine Glucose (UA) Negative mg/dL (NEG) Urine Ketones (Stick) Trace mg/dL (NEG) Urine Blood Negative (NEG) Urine Nitrite Negative (NEG) Urine Bilirubin Negative (NEG) Urine Urobilinogen Dipstick 0.2 mg/dL (0.2 mg/dL) Urine Leukocyte Esterase Negative (NEG) Urine RBC 0 /HPF (0-2) Urine WBC 1-4 /HPF (0-4) Urine Squamous Epithelial Cells Many /LPF Urine Bacteria Moderate /HPF (0-FEW) Urine Mucus Marked /LPF POC Urine HCG, Qualitative Hcg positive (Negative) Glucose (Fingerstick) 105 mg/dL (70-99) H EKG EKG [] Radiology/Procedures Radiology/Procedures [] Course & Med Decision Making Course & Med Decision Making Pertinent Labs and Imaging studies reviewed. (See chart for details) The patient had a benign abdominal exam. Ultrasound was unremarkable at 19 weeks gestation[address] on antibiotics and advised follow-up with her clinic this week. Urine culture was ordered.[] Dragon Disclaimer Dragon Disclaimer This electronic medical record was generated, in whole or in part, using a voice recognition dictation system. Departure Departure Impression: Primary Impression: Urinary tract infection during Disposition: 01 HOME, SELF-CARE Condition: STABLE Referrals: UNKNOWN PCP NAME (PCP) Patient Instructions: Urinary Tract Infection, [id number] Scripts Cephalexin (KEFLEX) 500 Mg Capsule 500 MG PO QID for 7 Days, #28 CAP Prov: STACIA BUCK MD 07/24/17 STACIA BUCK MD Jul 24, 2017 16:31
--- NOTE | 2017-07-24 16:55 | RAD ---
Indication: Cramping, 19 weeks . Technique: Limited OB ultrasound was performed. Findings: There is a single intrauterine gestation in breech presentation. The placenta is posterior and fundal in location without evidence of placental previa. There is probably a posterior myometrial fibroid measuring up to 4.2 cm, was apparently noted on a previous. INDIGO measured 10.3 cm. This value is within normal limits. Biometrical data is as follows: BPD = 4.36 cm, with a corresponding gestational age of 19 weeks 1 days. HC = 16.65 cm, with a corresponding gestational age of 19 weeks 2 days. AC = 14.32 cm, with a corresponding gestational age of 19 weeks 5 days. FL = 3.32 cm, with a corresponding gestational age of 20 weeks 3 days. Ratio of head circumference to abdominal circumference is 1.16. Cephalic index is 78%. Overall, the estimated sonographic gestational age is 19 weeks 5 days for an estimated date of delivery of December 13, 2017. There has been appropriate interval growth. Estimated weight is 320 g. A full survey was not performed. heart tones of 147 bpm are documented. IMPRESSION: Normal second trimester limited OB ultrasound. Possible fibroid redemonstrated.
[2017-07-24 17:20] VITALS: BP 130/81
[2017-07-24] MEDS ORDERED: CEPH-264 PO (17:27)
== END 2017-07-24 18:06 | disposition home or self-care (01) ==
LOC: ER 14:58
DX: O23.42 Unspecified infection of urinary tract in pregnancy, second trimester (principal); O99.412 Diseases of the circulatory system complicating pregnancy, second trimester; I25.10 Atherosclerotic heart disease of native coronary artery without angina pectoris; O99.212 Obesity complicating pregnancy, second trimester; E66.9 Obesity, unspecified; Z95.2 Presence of prosthetic heart valve; Z3A.19 19 weeks gestation of pregnancy; Z88.6 Allergy status to analgesic agent
CPT/HCPCS: 76805; 76817; 81001; 81025; 82962; 87086; 99285-25